=== PATIENT | male | born 1950 | race Caucasian/White ===

== ENCOUNTER → 2019-10-09 | Outpatient (CLI) | payer OTHER ==
[~2019-10-09] MED LIST: EFFEXOR XR75 MG PO; GLUCOSAMINE HC500 MG PO; KAPIDEX30 MG PO; LIPITOR PO; MOBIC PO; VITAMIN B-1100 MG PO; VITAMIN E400 UNIT PO; VITCB500GO PO; VYTORIN PO
== END ==
LOC: CAT 07:42
DX: Z13.6 Encounter for screening for cardiovascular disorders (principal); E78.00 Pure hypercholesterolemia, unspecified; I25.10 Atherosclerotic heart disease of native coronary artery without angina pectoris